=== PATIENT | male | born 1990 | race Caucasian/White ===

== ENCOUNTER 2016-09-10 10:41 | Emergency (ER) | payer OTHER ==
[2016-09-10 10:41] LABS: INFLUENZA A NEG (NEG); INFLUENZA B NEG (NEG)
[~2016-09-10 10:41] MED LIST: ADDERALLXR PO; ADVAIR 250-501 EACH IH; ALBUTEROL17 GM INH; AURALGAN EAR DR14 ML OT; CLEOCIN PO; FLEXERIL10 M1 PO; HYDROCODONE-APA1 T41 PO; IBUPROFEN800 MG PO; MAGIC MOUTH WASH PO; NAPROSYN500 MG PO; NO MEDICATIONS; NORFLEX100 M1 PO; PHENERGAN PO; PHENERGAN25 MG PO; SINGULAIR PO; SUDAFED30 M1 PO; TESSALON200 MG PO; TOPAMAX200 MG PO; TYLENOL #3 PO; VICODIN 5/1 TAB 5/50 PO; VOLTAREN50 MG PO; VOLTAREN75 MG PO; ZYPREXA20 MG PO
== END 2016-09-10 11:22 | disposition home or self-care (01) ==
LOC: SED 10:41
PROVIDERS: Physician Assistant
DX: J06.9 Acute upper respiratory infection, unspecified (principal); J45.909 Unspecified asthma, uncomplicated; F17.200 Nicotine dependence, unspecified, uncomplicated; Z88.0 Allergy status to penicillin
CPT/HCPCS: 87651; 87804; 87880; 99282